=== PATIENT | female | born 1975 | race African-American/Black ===

== ENCOUNTER 2022-02-03 08:00 | Emergency (ER) | payer BC, OTHER ==
[~2022-02-03] VITALS: Ht 162.6 cm; Wt 63.2 kg
[2022-02-03 09:34] VITALS: BP 146/96
[2022-02-03] MEDS ORDERED: CYCL-837 PO (09:36)
[2022-02-03] MEDS ORDERED: NAP500T PO (09:36)
[2022-02-03] MEDS: KETOROLAC TROMETH 60MG/2ML VIAL IM ONE (10:03)
== END 2022-02-03 10:15 | disposition home or self-care (01) ==
LOC: ER 08:00
DX: S39.012A Strain of muscle, fascia and tendon of lower back, initial encounter (principal); M54.31 Sciatica, right side; X58.XXXA Exposure to other specified factors, initial encounter; Y93.89 Activity, other specified; Y92.89 Other specified places as the place of occurrence of the external cause; Y99.8 Other external cause status
CPT/HCPCS: 96372; 99283; J1885

== ENCOUNTER 2023-06-24 15:47 | Emergency (ER) | payer BC, MEDICAID, OTHER ==
[~2023-06-24] VITALS: Ht 160 cm; Wt 68.5 kg
[~2023-06-24 15:47] MED LIST: CYCL-837 PO; NAP500T PO
[2023-06-24 16:29] VITALS: BP 123/84; PULSE 110; RESP 16; TEMP 97.3; O2SAT 98
[2023-06-24] MEDS ORDERED: IBUP1TAB5 PO (18:36)
[2023-06-24] MEDS ORDERED: CYCL-839 PO (18:36)
[2023-06-24] MEDS: DexAMETHasone SOD PHOS 10MG/1ML VIAL INJ IM ONE (20:22)
[2023-06-24] MEDS: HYDROcodone-ACET 5/325MG TAB PO ONE (20:24)
[2023-06-24] MEDS: KETOROLAC TROMETH 60MG/2ML VIAL IM ONE (20:25)
== END 2023-06-24 20:32 | disposition home or self-care (01) ==
LOC: ER 15:47
DX: M54.41 Lumbago with sciatica, right side (principal); M62.830 Muscle spasm of back
CPT/HCPCS: 72100; 96372; 99284; J1100; J1885

== ENCOUNTER 2023-09-20 14:17 | Emergency (ER) | payer BC, MEDICAID ==
[~2023-09-20] VITALS: Ht 162.6 cm; Wt 66.5 kg
[~2023-09-20 14:17] MED LIST changes: +CYCL-839 PO; +IBUP-1454 PO; +IBUP1TAB5 PO
[2023-09-20] MEDS ORDERED: IBUP-1456 PO (18:35)
[2023-09-20] MEDS: KETOROLAC TROMETH 60MG/2ML VIAL IM ONE (18:41)
[2023-09-20 19:01] VITALS: BP 137/89; PULSE 97; RESP 12; TEMP 98; O2SAT 99
== END 2023-09-20 19:06 | disposition home or self-care (01) ==
LOC: ER 14:17
DX: S93.692A Other sprain of left foot, initial encounter (principal); Z98.890 Other specified postprocedural states; Z79.899 Other long term (current) drug therapy; W01.0XXA Fall on same level from slipping, tripping and stumbling without subsequent striking against object, initial encounter; Y93.01 Activity, walking, marching and hiking; Y92.89 Other specified places as the place of occurrence of the external cause; Y99.8 Other external cause status
CPT/HCPCS: 73630; 96372; 99283; J1885

== ENCOUNTER 2023-09-29 08:03 | Emergency (ER) | payer BC ==
[~2023-09-29] VITALS: Ht 162.6 cm; Wt 68.9 kg
[~2023-09-29 08:03] MED LIST changes: +IBUP-1456 PO
[2023-09-29 08:34] VITALS: BP 152/89; PULSE 80; RESP 16; TEMP 97.7; O2SAT 99
== END 2023-09-29 08:48 | disposition home or self-care (01) ==
LOC: ER 08:03
DX: S93.602A Unspecified sprain of left foot, initial encounter (principal); Z79.1 Long term (current) use of non-steroidal anti-inflammatories (NSAID); Z79.899 Other long term (current) drug therapy; X50.1XXA Overexertion from prolonged static or awkward postures, initial encounter; Y93.89 Activity, other specified; Y92.89 Other specified places as the place of occurrence of the external cause; Y99.8 Other external cause status
CPT/HCPCS: 29515